=== PATIENT | male | born 1995 | race Caucasian/White ===

== ENCOUNTER 2018-03-05 02:02 | Emergency (ER) | payer BC, MEDICAID ==
[~2018-03-05] VITALS: Ht 177.8 cm; Wt 80.0 kg
[~2018-03-05 02:02] MED LIST: LORTA5 PO
[2018-03-05 02:07] VITALS: BP 189/80; PULSE 88; RESP 20; TEMP 99.1; O2SAT 96
[2018-03-05] MEDS ORDERED: ACETAMINOPHEN/HYDROcodone 325 MG/5 MG TAB PO ONE (03:15)
[2018-03-05] MEDS ORDERED: CIPROFLOXACIN 750 MG TAB PO ONE (03:15)
[2018-03-05] MEDS ORDERED: [UNRECOGNIZED DRUG - CODE] LEFT EAR (03:18)
[2018-03-05] MEDS ORDERED: CIPR0.3S LEFT EAR (03:18)
--- NOTE | 2018-03-05 03:23 | PD ---
HPI Chief Complaint: ENT Complaint Time Seen by Provider: 03:12 Travel History International Travel<30 days: No Contact w/Intl Traveler<30days: No Traveled to known affect area: No History of Present Illness HPI 22-year-old white male presents emergency department complains of left ear pain. He states that he feels that he has a ear infection. He has been using Q -tips. It has become increasingly painful and swollen over the last 2 days. He has been using peroxide to help clean his ear out. He states that he has had decreased hearing and pain. He has had no fever chills. No runny nose, cough or congestion. Symptoms are moderate. No alleviating factors. Exacerbated by the peroxide. PFSH Past Medical History Medical History: Denies Significant Hx Diminished Hearing: No Immunizations Current: Yes Tetanus Vaccination: < 5 Years Influenza Vaccination: No Past Surgical History Surgical History: No Previous Surgery Social History Alcohol Use: Yes Tobacco Use: No Substance Use: No Allergies-Medications (Allergen,Severity, Reaction): Coded Allergies: shellfish derived (Unverified Allergy, Unknown, 03/05/18) NOT SURE BUT BELIEVES HE GETS "PUFFY" Reported Meds & Prescriptions Reported Meds & Active Scripts Active Tetracaine Opth Drops (Tetracaine HCl) 0.5 % Salma 2 Drop LEFT EAR Q4HR PRN Ciprodex Otic Drops (Ciprofloxacin-Dexamethasone Otic Drops) 0.3-0.1% Susp 4 Drop LEFT EAR BID Review of Systems General / Constitutional: No: Fever Eyes: No: Visual changes HENT: Positive: Ear Discharge, Earache, No: Headaches, Sore Throat, Congestion Cardiovascular: No: Chest Pain or Discomfort Respiratory: No: Shortness of Breath Gastrointestinal: No: Abdominal Pain Genitourinary: No: Dysuria Musculoskeletal: No: Pain Skin: No Rash Neurologic: No: Weakness Psychiatric: No: Depression Endocrine: No: Polydipsia Hematologic/Lymphatic: No: Easy Bruising Physical Exam Narrative GENERAL: Well-developed, well-nourished in no acute distress. Nontoxic appearing. HEAD: Normocephalic, atraumatic. EYES: Pupils equal round and reactive. Extraocular motions intact. No scleral icterus. No injection or drainage. ENT: The right TMs clear without erythema. The right external auditory canal clear. Left TM is nonvisualized due to cerumen and exudate. He has edema of the canal as well as pain in the pinna and tragus. Nose: clear . Posterior pharynx is pink and moist. No tonsillar edema or exudate. Uvula midline. Airway patent. NECK: Trachea midline.Supple, nontender, moves head freely. No central bony tenderness or spasm. CARDIOVASCULAR: Regular rate and rhythm without murmurs, gallops, or rubs. RESPIRATORY: Clear to auscultation. Breath sounds equal bilaterally. No wheezes , rales, or rhonchi. GASTROINTESTINAL: Abdomen soft, non-tender, nondistended. No hepato-splenomegaly , or palpable masses. No guarding. EXTREMITIES: No clubbing, cyanosis, or edema. No joint tenderness, effusion, or edema noted. BACK: Nontender without deformity or crepitance. No flank tenderness. Data Data Last Documented VS Vital Signs Date Time Temp Pulse Resp B/P (MAP) Pulse Ox O2 Delivery O2 Flow Rate FiO2 03/05/18 02:07 99.1 88 20 189/80 (116) 96 Orders Orders Ciprofloxacin (Cipro) (03/05/18 03:15) Acetamin-Hydrocod 325-5 Mg (Russell 5-325 (03/05/18 03:15) Ed Discharge Order (03/05/18 03:15) [facility] Medical Decision Making Medical Screen Exam Complete: Yes Emergency Medical Condition: Yes Medical Record Reviewed: Yes Differential Diagnosis Differential diagnosis: Otitis externa, otitis media, mastoiditis Narrative Course Patient is given Cipro 750 p.o., Russell 5.0. P.o. Patient is also given Alcaine 5 drops into the left ear Diagnosis Primary Impression: Left otitis externa Patient Instructions: General Instructions Additional Instructions: Rest. Medications as directed. 3 Advil every 6 hours. Follow-up with a medical doctor in 1 week. Do not put any peroxide or any other medications in your ear. Return to the ER for any problems. Med/Other Pt SpecificInfo: Prescription(s) given Scripts Tetracaine Opth Drops (Tetracaine Opth Drops) 0.5 % Salma 2 DROP LEFT EAR Q4HR Y for PAIN GREATER THAN 5, #1 BOTTLE 0 Refills Prov: Vickie Reyes MD 03/05/18 Ciprofloxacin-Dexamethasone Otic Drops (Ciprodex Otic Drops) 0.3-0.1% Susp 4 DROP LEFT EAR BID for Infection, #1 BOTTLE 0 Refills Prov: Vickie Reyes MD 03/05/18 Disposition: 01 DISCHARGE HOME Condition: Stable Jerrell Matute Mar 05, 2018 03:23
== END 2018-03-05 04:18 | disposition home or self-care (01) ==
LOC: NEPD 02:02
DX: H60.92 Unspecified otitis externa, left ear (principal)
CPT/HCPCS: 99283